=== PATIENT | female | born 1990 | race Two or more races ===

== ENCOUNTER 2018-08-29 15:30 | Inpatient (IN) | payer OTHER ==
[~2018-08-29] VITALS: Ht 167.6 cm; Wt 3.2 kg
[2018-09-11] MEDS ORDERED: MAXFE CAPLET1 EACH PO (06:22)
[2018-09-11] MEDS ORDERED: PRENATAL FORMU1 EAC1 PO (06:23)
== END 2018-09-14 11:45 | DRG 788 ==
LOC: LDR 09-11 05:28 → OB/GYN 09-11 20:41 → LDR 09-13 15:30 → OB/GYN 09-14 11:45
PROVIDERS: Obstetrics & Gynecology
PROC: 4A1HXCZ Monitoring of Products of Conception, Cardiac Rate, External Approach (ICD-10-PCS; 2018-09-11)
PROC: 3E033VJ Introduction of Other Hormone into Peripheral Vein, Percutaneous Approach (ICD-10-PCS; 2018-09-11)
PROC: 4A033R1 Measurement of Arterial Saturation, Peripheral, Percutaneous Approach (ICD-10-PCS; 2018-09-11)
PROC: 10D00Z1 Extraction of Products of Conception, Low, Open Approach (ICD-10-PCS; principal; 2018-09-11 18:00)
DX: O61.0 Failed medical induction of labor (principal); O62.1 Secondary uterine inertia; Z3A.40 40 weeks gestation of pregnancy; Z37.0 Single live birth

== ENCOUNTER 2020-10-30 16:52 | Inpatient (IN) | payer OTHER ==
[~2020-10-30] VITALS: Ht 167.6 cm; Wt 118.8 kg
[~2020-10-30 16:52] MED LIST: MAXFE CAPLET1 EACH PO; PRENATAL FORMU1 EAC1 PO
--- NOTE | 2020-10-30 17:02 | NUR ---
PTE EMBARAZADA DE 8 SEMANAS REFIERE VAGINAL BLEEDING Y DOLOR EN LA ESPALDA BAJA REFIERE PTE.
--- NOTE | 2020-10-30 18:07 | NUR ---
PTE ES EVALUADA POR DR. CHARY CONNELLIEN ORDENA TRATAMIENTO. SE EDUCA A PTE SOBRE ORDENES MEDICAS Y REFIERE COMPRENDER. SE CANALIZA Y SE COLECTAN MUESTRAS DE LABORATORIO BAJO MEDIDAS ASEPTICAS. PTE CON SONOGRAMA TRANSVAGINAL.
== END 2020-10-31 12:43 | disposition home or self-care (01) | DRG 770 ==
LOC: ER 16:52 → SEC-K 19:51 → SURH 19:51
PROVIDERS: ADMIT Obstetrics & Gynecology; ATTEND Obstetrics & Gynecology
PROC: 10D17ZZ Extraction of Products of Conception, Retained, Via Natural or Artificial Opening (ICD-10-PCS; principal; 2020-10-31)
PROC: BU4CZZZ Ultrasonography of Uterus and Ovaries (ICD-10-PCS; 2020-10-31)
DX: O02.1 Missed abortion (principal)

== ENCOUNTER 2022-07-27 13:58 | Emergency (ER) | payer OTHER ==
[~2022-07-27] VITALS: Ht 160 cm; Wt 119.3 kg
== END 2022-07-28 08:00 | disposition home or self-care (01) ==
LOC: ER 13:58
DX: O20.8 Other hemorrhage in early pregnancy (principal); Z3A.01 Less than 8 weeks gestation of pregnancy; R10.2 Pelvic and perineal pain; Z88.6 Allergy status to analgesic agent

== ENCOUNTER 2022-07-30 14:14 | Emergency (ER) | payer OTHER ==
[~2022-07-30] VITALS: Ht 167.6 cm; Wt 119.3 kg
== END 2022-07-30 20:00 | disposition home or self-care (01) ==
LOC: ER 14:14
DX: D25.9 Leiomyoma of uterus, unspecified (principal); R10.9 Unspecified abdominal pain